=== PATIENT | female | born 1980 | race Caucasian/White ===

== ENCOUNTER 2018-03-06 13:36 | Emergency (ER) | payer MEDICAID ==
--- NOTE | 2018-03-06 14:30 | ED Physician Documentation ---
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.) Where injury occurred: [place] Timing - onset: How many hours ago (1) Timing - duration: Hours (1) Timing - details: Abrupt onset Pain level max: 9 Pain level now: 9 Improved by: Rest, Ice, Immobilization Worsened by: Moving, Palpating Associated symptoms: No: Weakness, Numbness, Tingling, Swelling, Discolored Contributing factors: No: Anticoagulated Recently seen: Not recently seen - Additonal information Additional information: pt is right handed Review of Systems Constitutional: denies: Fever, Chills : denies: Now EGA Skin: denies: Rash PD PAST MEDICAL HISTORY - Past Medical History Past Medical History: No - Past Surgical History Past Surgical History: 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 - Present Medications Home Medications: Ambulatory Orders Medication Instructions Recorded Confirmed Promethazine [Phenergan] 25 mg PO Q6H PRN #20 tab 12/14/13 Pyridoxine HCl [Vitamin B-6] 50 mg PO BID #20 capsule 12/14/13 Hydrocodone/Acetaminophen 1 - 2 each PO Q6H PRN #14 tablet 03/06/18 [Hydrocodon-Acetaminophen 5-325] Ondansetron Odt [Zofran] 4 mg TL Q6H PRN #10 tablet 03/06/18 - Allergies Allergies/Adverse Reactions: Allergies Allergy/AdvReac Type Severity Reaction Status Date / Time No Known Drug Allergies Allergy Verified 12/14/13 01:51 - Social History Does the pt smoke?: No Smoking Status: Never smoker Does the pt drink ETOH?: No Does the pt have substance abuse?: No - Immunizations Immunizations are current?: Yes PD ED PE NORMAL - Vitals Vital signs reviewed: Yes - General General: Alert and oriented X 3, No acute distress - HEENT HEENT: Moist mucous membranes - Neck Neck: Supple, no meningeal sign - Derm Derm: Warm and dry - Extremities Extremities: Other (TTP R wrist, distal ulna. NVI. ) - Neuro Neuro: Alert and oriented X 3 Results - Vitals Vitals: Vital Signs - 24 hr 03/06/18 13:59 Temperature 36.3 C L Heart Rate 71 Respiratory 18 Rate Blood Pressure 152/87 H O2 Saturation 98 Oxygen O2 Source Room air - Rads (name of study) R wrist xray Radiology: Prelim report reviewed, EMP read contemporaneously, See rad report (Proximal ulnar fracture is seen on ventral surface on lateral view. . Possible subluxation along the second metacarpal trapezoid joint versus positioning. ) Procedures - Splint (location) R wrist Splint applied by: Physician, Tech Type of splint: Fiberglass, Sugar tong Other: Patient tolerated well, No complications, Neurovascular intact, Good alignment, Sling provided PD MEDICAL DECISION MAKING - ED course Complexity details: reviewed results, re-evaluated patient, considered differential, d/w patient, d/w family ED course: Patient is a 37-year-old female with what appears to be a proximal ulna fracture on x-ray. Placed in a sugar tong splint. Pain controlled. Neurovascularly intact. No other acute injuries. We will have her follow-up with orthopedics for further evaluation and care. Patient counseled regarding signs and symptoms for which I believe and urgent re-evaluation would be necessary. Patient with good understanding of and agreement to plan and is comfortable going home at t his time This document was made in part using voice recognition software. While efforts are made to proofread this document, sound alike and grammatical errors may occur. - Sepsis Event Vital Signs: Vital Signs - 24 hr 03/06/18 13:59 Temperature 36.3 C L Heart Rate 71 Respiratory 18 Rate Blood Pressure 152/87 H O2 Saturation 98 Oxygen O2 Source Room air Departure - Departure Disposition: 01 Home, Self Care Clinical Impression: Fracture, ulna, proximal Qualifiers: Encounter type: initial encounter Fracture type: closed Fracture morphology: other fracture Laterality: right Qualified Code(s): S52.091A - Other fracture of upper end of right ulna, initial encounter for closed fracture Condition: Good Instructions: ED Fx Upper Ext Follow-Up: Preethi Guerra ARNP [Primary Care Provider] - [facility] [Provider Group] - Within 1 week Prescriptions: Hydrocodone/Acetaminophen [Hydrocodon-Acetaminophen 5-325] 1 - 2 each PO Q6H PRN #14 tablet PRN Reason: pain Ondansetron Odt [Zofran] 4 mg TL Q6H PRN #10 tablet PRN Reason: Nausea / Vomiting Comments: Wear the splint and the sling until released by orthopedics. You will likely need to be changed into a cast in 1 week. Return if you worsen. Do not drink alcohol or drive while on narcotic pain medicine. Note that many narcotic pain relievers also contain tylenol/acetaminophen. Please ensure that your total dose of acetaminophen from all sources does not exceed 3 grams (3000mg) per day. You may constipated on this medication, take a stool softener such as "Colace" twice a day while you are on it. Also recommend a [id number] laxative such as senna or MiraLAX any day that you do not have a bowel movement. If you received narcotic pain medication in the emergency department, do not drive or operate machinery for the next 24 hours. Discharge Date/Time: 03/06/18 15:50
--- NOTE | 2018-03-06 15:06 | XRAY Report ---
Reason: baseball vs wrist, pain to ulnar aspect Procedure Date: 03/06/2018 Accession Number: [id number] / [id number] Procedure: XR - Wrist 4 View RT CPT Code: FULL RESULT: EXAM: RIGHT WRIST RADIOGRAPHY EXAM DATE: 03/06/2018 02:52 PM. CLINICAL HISTORY: Baseball vs wrist, pain to ulnar aspect. COMPARISON: None. TECHNIQUE: 4 views. FINDINGS: Bones: Proximal ulnar fracture is seen on ventral surface on lateral view. Possible subluxation along the second metacarpal trapezoid joint versus positioning. Soft Tissues: Soft tissue swelling. IMPRESSION: 1. Proximal ulnar fracture is seen on ventral surface on lateral view. 2. Possible subluxation along the second metacarpal trapezoid joint versus positioning. [facility]
[2018-03-06] MEDS ORDERED: HYDROcod/ACETAM 5/325 MG TABLET PO STA (15:14)
[2018-03-06 15:52] VITALS: BP 115/75
== END 2018-03-06 15:50 | disposition home or self-care (01) ==
LOC: ED 13:36
DX: S52.091A Other fracture of upper end of right ulna, initial encounter for closed fracture (principal); W21.03XA Struck by baseball, initial encounter; Y93.89 Activity, other specified
CPT/HCPCS: 29105; 73110; 99283; A9270